=== PATIENT | male | born 1975 | race Caucasian/White ===

== ENCOUNTER 2016-11-14 16:49 | Emergency (ER) | payer SELFPAY ==
[2016-11-14] MEDS ORDERED: TETRACAINE HCL 0.5% OPH SOLN 2 ML OU ONE (17:26)
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
[2016-11-14] MEDS ORDERED: KETOROLAC TROMETHAMINE 0.45% 4 DROP/0.4 ML DROPERETTE OU ONE (19:32)
[2016-11-14 20:35] VITALS: BP 120/74
== END 2016-11-14 20:34 | disposition home or self-care (01) ==
LOC: ER 16:49
DX: S00.10XA Contusion of unspecified eyelid and periocular area, initial encounter (principal); R68.84 Jaw pain; M79.601 Pain in right arm; H57.13 Ocular pain, bilateral; Y04.8XXA Assault by other bodily force, initial encounter; Z87.891 Personal history of nicotine dependence; Z21 Asymptomatic human immunodeficiency virus [HIV] infection status
CPT/HCPCS: 70486; 99284

== ENCOUNTER 2019-07-29 09:10 | Emergency (ER) | payer SELFPAY ==
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
[2019-07-29 09:58] VITALS: BP 128/80
[2019-07-29 10:30] LABS: A TYPE INFLUENZA AG NEGATIVE (NEGATIVE); B INFLUENZA AG POSITIVE (NEGATIVE)
== END 2019-07-29 13:20 | disposition home or self-care (01) ==
LOC: EDRDC 09:10
DX: J10.1 Influenza due to other identified influenza virus with other respiratory manifestations (principal); Z20.828 Contact with and (suspected) exposure to other viral communicable diseases; R50.9 Fever, unspecified; R05 Cough; R11.0 Nausea; R51 Headache; J34.89 Other specified disorders of nose and nasal sinuses; F17.200 Nicotine dependence, unspecified, uncomplicated; Z21 Asymptomatic human immunodeficiency virus [HIV] infection status
CPT/HCPCS: 87070; 87635; 87804; 87880; 99211